=== PATIENT | female | born 1990 | race Caucasian/White ===

== ENCOUNTER 2020-06-27 18:16 | Emergency (ER) | payer MEDICAID ==
[~2020-06-27] VITALS: Ht 165.1 cm; Wt 104.3 kg
[2020-06-27 18:24] VITALS: BP 106/58
[2020-06-27] MEDS ORDERED: FAMOTIDINE 20 MG TAB PO ONE (18:35)
[2020-06-27] MEDS ORDERED: ALUMINUM HYD/MAG/SIMETHICONE 30 ML UDC PO ONE (18:35)
[2020-06-27] MEDS ORDERED: ACETAMINOPHEN 325 MG TAB PO ONE (18:35)
[2020-06-27 18:54] LABS: BASOPHILS # (AUTO) 0.1 K/uL (0.00-0.22); BASOPHILS % (AUTO) 0.7 % (0.0-2.0); EOSINOPHILS # (AUTO) 0.1 K/uL (0-0.4); EOSINOPHILS % (AUTO) 0.6 % (0.0-4.0); HEMATOCRIT 33.8 % (36-48); HEMOGLOBIN 10.7 g/dL (12.0-16.0); LYMPHOCYTES # (AUTO) 2.5 K/uL (2.5-16.5); LYMPHOCYTES % (AUTO) 26.9 % (20.5-51.1); MEAN CORPUSCULAR HEMOGLOBIN 25 pg (27-31); MEAN CORPUSCULAR HGB CONC 32 g/dL (33-37); MEAN CORPUSCULAR VOLUME 80.1 fL (80-94); MONOCYTES # (AUTO) 0.4 K/uL (0.8-1.0); MONOCYTES % (AUTO) 4.6 % (1.7-9.3); NEUTROPHILS # (AUTO) 6.3 K/uL (1.8-7.7); NEUTROPHILS % (AUTO) 67.2 % (42.2-75.2); PLATELET COUNT (AUTO) 366 K/uL (140-450); RED BLOOD CELL COUNT(AUTO) 4.22 MIL/uL (4.20-5.40); RED CELL DISTRIBUTION WIDTH 15.6 % (11.6-13.7); WHITE BLOOD COUNT (AUTO) 9.3 K/uL (4.8-10.8)
[2020-06-27 19:07] LABS: ALBUMIN 3.5 g/dL (3.4-5.0); ANION GAP 13.1 (8-16); CARBON DIOXIDE 27.7 mmol/L (21-32); CREATININE 0.6 mg/dL (0.6-1.3); POTASSIUM 3.8 mmol/L (3.5-5.1); TOTAL BILIRUBIN 0.2 mg/dL (0.0-1.0)
[2020-06-27 19:13] VITALS: BP 101/55
[2020-06-27] MEDS ORDERED: DICYCLOMINE 20 MG/2 ML VIAL IM ONE ×3 (19:25→19:55)
[2020-06-27] MEDS ORDERED: KETOROLAC 30 MG/ML VIAL IM ONE (19:45)
== END 2020-06-27 20:35 | disposition home or self-care (01) ==
LOC: MED 18:16
DX: K59.00 Constipation, unspecified (principal); R10.33 Periumbilical pain; Z88.8 Allergy status to other drugs, medicaments and biological substances; G40.909 Epilepsy, unspecified, not intractable, without status epilepticus
CPT/HCPCS: 36415; 74018; 80053; 81002; 81025; 83690; 85025; 96372; 99284; J0500; J1885